=== PATIENT | female | born 1960 | race Caucasian/White ===

== ENCOUNTER 2020-04-13 22:04 | Emergency (ER) | payer MEDICAID, SELFPAY ==
[2020-04-13] VITALS (11 sets, daily range): BP systolic 119–136; BP diastolic 66–99; PULSE 97–115; RESP 13–21; TEMP 37; O2SAT 95–100
--- NOTE | 2020-04-13 22:00 | RT.EKG_ITS ---
APPROVED REPORT Exam: Resting ECG Patient Location: E HR:113 bpm ECG Measurements Heart Rate 113 AXIS OR 175 P 49 QRSd 77 QRS 27 QT 328 T 62 QTc 446 Conclusion Sinus tachycardia...rate> 99 Atrial premature complex...SV complex w/ short R-R interval Normal [place] Normal Intervals. Nonspecific ST changes. No STEMI.
--- NOTE | 2020-04-13 22:06 | ED.GENADUL_ITS ---
Discharge Plan Disposition Patient Disposition: HOME Condition: Good Discharge Details Clinical Impression: Left-sided chest wall pain, Abnormal CT scan of lung Primary Care Provider: None,None ED Provider: Patric Dutta Meds and New Rx's Prescriptions: New ibuprofen 600 mg tablet 600 mg PO Q8H PRNQty: 15 RF: 0 Continued omeprazole 20 mg Capsule,Delayed Release(Dr/Ec) 20 mg PO PRN PRNRF: 0 diphenhydramine HCl [Benadryl] 25 mg Capsule 50 mg PO HS RF: 0 Discharge Instructions Instructions: Chest Wall Pain (ED) Additional Instructions: Your work-up tonight is reassuring with no significant laboratory abnormalities, EKG changes, evidence of blood clot. CT scan does show interstitial changes of the lungs especially in the bases. Given lack of fever, cough, shortness of breath, elevated white count this is unlikely to be pneumonia. Covid testing was negative. Chest pain is likely chest wall pain/costochondritis. Recommend rest over the weekend with heat and ibuprofen. You will need to find primary care for follow-up especially for follow-up of CT scan findings tonight. Records from this visit can be forwarded to that PCP once you establish care. If there are any issues and you develop new or worsening pain, fever, shortness of breath, have other concerns return to ED. Medical Decision Making Patient presenting with pleuritic and reproducible chest pain left sternal border. She denies feeling short of breath but repeatedly takes her mask off to take a deep breath. Unclear whether she is anxious or not. She is tachycardic. Her O2 saturations are normal. She has no risk factors for clot or coronary disease. EKG is sinus tachycardia with nonspecific ST changes nondiagnostic. There is no STEMI. Because of tachycardia of 120 I will proceed with CTA chest to rule out PE. She has had pain all day so one troponin should rule out cardiac problem. History not consistent with dissection. Most likely chest wall pain and anxiety. Will treat with IV ketorolac, IV lorazepam, IV fluids. CTA and labs pending. 01:30 - Patient's labs are unremarkable. Troponin negative. CTA of the chest negative for PE or dissection. She is noted to have interstitial changes that appear chronic as well as groundglass opacities in the lower lung nolasco. Patient has no fever, URI symptoms, cough, shortness of breath. No previous x- rays or CT scans for comparison. Doubt this is infectious but rapid Covid was done. This is negative. Given lack of other symptoms and suggestion of chronic changes will not start antibiotics. Chest pain is likely chest wall pain/costochondritis given its location. We will have her use ibuprofen and heat over the weekend. Currently does not have primary care but would like to find one down in the [place] area where she works. I have instructed her that she will need follow-up regarding CT findings. She will be able to get the records and images sent to new PCP once she finds one. Return to ED for new or worsening pain, shortness of breath, fever, other concerns. Imaging Data Radiologic Study: Imaging: CT Scan Radiologist's impression: FINDINGS: Pulmonary arteries: No pulmonary emboli. Aorta: No aortic aneurysm. No aortic dissection. Lungs: Bilateral interstitial pattern of chronic changes with interlobular septal thickening. Ill-defined opacities within lower lung zones bilaterally, more prominent within left lower lobe, cannot rule out airspace disease. Pleural spaces: Trace pleural effusion on the left. Heart: No cardiomegaly. No pericardial effusion. Lymph nodes: Unremarkable. No enlarged lymph nodes. Bones/joints: Unremarkable. No acute fracture. Soft tissues: Unremarkable. IMPRESSION: No pulmonary emboli. Bilateral ground-glass opacities within lower lung zones, more prominent within left lower lobe, cannot rule out developing airspace disease. Dictated and Authenticated by: Wes Ahumada MD. Lab Data Lab results reviewed: Yes I reviewed the patient's lab results. ECG Data Attestation: I personally reviewed and interpreted this ECG (s) as follows: Prior ECG tracings: not available for review Interpretation: see EKG HPI General Mode of arrival: ambulatory . Date/Time Provider Initiated Documentation: 04/13/20 22:06 . Limitations to Documentation: no limitations . Information obtained by: patient and RN notes reviewed . HPI Narrative: Patient presents to ED with chest pain. Patient reports shoveling part of a roof off on Thursday. Thursday night she has difficulty sleeping because of chest pain seem to Thursday. Thursday day and Thursday she seemed to be okay. Woke up Thursday morning (today) with chest pain that has been present all day long. She did take Tylenol with no relief. It is left anterior pain that is worse with breathing but not moving. She does not feel short of breath. She has no fever or cough. No radiation of pain. No GI symptoms. No leg pain or leg swelling. No prior history of DVT or PE. No cardiac risk factors or history of coronary disease. Prior history of cancer but considered cured status post surgery and chemo in the past. She has been unable to sleep tonight and present for evaluation. Related Data Home Medications Medication Instructions Recorded Confirmed diphenhydramine HCl [Benadryl] 50 mg PO HS 04/13/20 04/13/20 omeprazole 20 mg PO PRN PRN 04/13/20 04/13/20 ibuprofen 600 mg PO Q8H PRN #15 tab 04/14/20 Previous Rx's Medication Instructions Recorded ibuprofen 600 mg PO Q8H PRN #15 tab 04/14/20 Allergies Allergy/AdvReac Type Severity Reaction Status Date / Time No Known Drug Allergies Allergy Unverified 04/13/20 22:27 Review of Systems Narrative: As documented in HPI otherwise negative as below. Const: no fever, chills, weakness Resp: no cough, SOB CV: no diaphoresis, edema, syncope GI: no abdominal pain, nausea, vomiting, diarrhea Neuro: no headache, numbness, focal weakness, confusion PFSH Medical History Colon cancer s/p chemo and surgery considered cured Surgical History S/P partial resection of colon Social History Smoking/Tobacco Use Status: Former Tobacco Use Smoking risk assessment performed?: Yes Alcohol Intake: current Alcohol Intake frequency: a few times a week Drug use: Never Substance use type: does not use Do you feel safe at home: Yes Do you feel safe in your relationship?: Yes Exam Narrative Exam Narrative: Const: WDWN female in NAD. HEENT: NC/AT. Normal facial exam. Eyes: Normal conjunctiva and sclera. Neck: Supple. Trachea midline. Lungs: Normal respiratory effort. Lungs are clear. Chest wall tender to palpation left sternal border. Cor: RRR without murmur/gallop. Good radial pulses. GI: Soft. NT/ND. No guarding or rebound. Neuro: A+O x 3. Normal speech, mentation, gait. Cranial nerves II - XII grossly intact. No gross motor or sensory deficit. Ext: No C/C/E. No calf tenderness. Skin: Warm and dry without rash.
[2020-04-13] MEDS: Lactated Ringers 1,000 ML 1000 ML IV (22:55)
[2020-04-13] MEDS: Ketorolac 15 MG/ML VIAL IVP (22:59)
[2020-04-13 23:00] LABS: Abs Immature Grans 0.01 10^3/uL (0.0-0.06); Absolute Basophil Count 0.03 10^3/uL (0.0-0.2); Absolute Eosinophil Count 0.22 10^3/uL (0.0-0.7); Absolute Lymphocyte Count 0.94 10^3/uL (1.2-3.4); Absolute Monocyte Count 0.55 10^3/uL (0.1-0.8); Absolute Neutrophil Count 2.49 10^3/uL (1.2-6.7); Basophils % 0.7; Eosinophils % 5.2; HGB 12.4 g/dL (11.2-15.7); Immature Grans % 0.2; Lymphocytes % 22.2; MCHC 33.5 % (32.0-36.0); MCV 86.7 fL (80-95); Neutrophils % 58.7; Nucleated RBC 0 %; Platelet Count 194 10^3/uL (130-400); RBC 4.27 10^6/uL (3.93-5.22); RDW 13.7 % (11.7-14.6); RDW-SD 42.1 fL; WBC 4.24 10^3/uL (4.4-10.8)
[2020-04-13] MEDS: LORazepam 2 MG/ML VIAL 0.5 MG IVP (23:02)
[2020-04-13 23:16] LABS: ALT 27 U/L (14-59); AST 20 U/L (15-37); Albumin 3.5 g/dL (3.4-5.0); Alkaline Phosphatase 134 U/L (46-116); Anion Gap 12.3 mmol/L (3-11); BUN 14 mg/dL (7-18); Bilirubin, Total 0.3 mg/dL (0.2-1.0); CO2 24.7 mmol/L (21.0-32.0); CREATININE 0.9 mg/dL (0.55-1.02); Calcium 8.7 mg/dL (8.5-10.1); Chloride 103 mmol/L (98-107); Glucose 110 mg/dL (74-106); Magnesium 2.1 mg/dL (1.8-2.4); Potassium 3.7 mmol/L (3.5-5.1); Sodium 140 mmol/L (136-145); Total Protein 7.4 g/dL (6.4-8.2)
[2020-04-13 23:17] LABS: Troponin I < 0.05 ng/mL (<0.06)
--- NOTE | 2020-04-13 23:36 | DI.CT_ITS ---
EXAM: CT CHEST PE CTA CLINICAL HISTORY: pleutic CP with tachycardia. TECHNIQUE: Imaging Protocol: CT angiography of the chest was performed using pulmonary embolus nancy col. Multi planar reconstructions were performed. CONTRAST MATERIAL: Intravenous: Omnipaque 350 Contrast volume: 70 cc COMPARISON: No exams were available for comparison FINDINGS: CHEST: PULMONARY ARTERIES: There are no intraluminal filling defects to suggest acute pulmonary emboli. LUNGS: Mild increased markings in lung bases noted. Probably exaggerated by suboptimal inspiratory e ffort.. There are no pleural effusions. MEDIASTINUM: There is no hilar nor mediastinal adenopathy. Visualized thyroid unremarkable. CARDIAC: Heart size is normal. There is no pericardial effusion.Caliber thoracic aorta is within nor mal limits. There is no evidence of aortic dissection. There is no evidence of shift of the interve ntricular septum. PARTIALLY VISUALIZED UPPERMOST ABDOMEN: Hepatic steatosis noted. OSSEOUS: No significant osseous lesions.. IMPRESSION: 1. No evidence of acute pulmonary emboli. No evidence of pulmonary infarction.No pleural effusions. No evidence of aortic dissection. No pericardial effusion. 2. Mild infiltrates in both lower lung zones, slightly more prominent on the left side. 3. No intrathoracic adenopathy evident. RADIATION DOSE DELIVERED: LINK-TO-SR Total DLP DATA REPOSITORY: All CT scans at this facility are submitted to the National Radiology Data Registry (NRDR) Dose Index Registry (DIR) with the [employer] ([employer]). RADIATION OPTIMIZATION: All CT scans at this facility use at least one of these dose optimization te chniques: automated exposure control; mA and/or kV adjustment per patient size (includes targeted exa ms where dose is matched to clinical indication); or iterative reconstruction.
[2020-04-13] MEDS: Normal Saline - Diluent 50 ML VIAL IV (23:56)
[2020-04-13] MEDS: Normal Saline Flush 10 ML SYR IVP (23:56)
[2020-04-13] MEDS: Omnipaque 350 MG/ML 100 ML BTL IJ (23:57)
[2020-04-14] VITALS (15 sets, daily range): BP systolic 101–104; BP diastolic 62–70; PULSE 88–107; RESP 14–23; O2SAT 94–98
--- NOTE | 2020-04-14 00:06 | DI.VRAD_ITS ---
PROCEDURE INFORMATION: Exam: CT Angiography Chest With Contrast Exam date and time: 04/13/2020 10:29 PM Age: 59 years old Clinical indication: Patient HX: Pleuritic chest pain with tachycardia. Pain started 4 days ago +/- TECHNIQUE: Imaging protocol: Computed tomographic angiography of the chest with contrast. 3D rendering (Not supervised by radiologist): MIP and/or 3D reconstructed images were created by the technologist. Radiation optimization: All CT scans at this facility use at least one of these dose optimization techniques: automated exposure control; mA and/or kV adjustment per patient size (includes targeted exams where dose is matched to clinical indication); or iterative reconstruction. Contrast material: [id number]; Contrast volume: 70 ml; Contrast route: INTRAVENOUS (IV); COMPARISON: No relevant prior studies available. FINDINGS: Pulmonary arteries: No pulmonary emboli. Aorta: No aortic aneurysm. No aortic dissection. Lungs: Bilateral interstitial pattern of chronic changes with interlobular septal thickening. Ill-defined opacities within lower lung zones bilaterally, more prominent within left lower lobe, cannot rule out airspace disease. Pleural spaces: Trace pleural effusion on the left. Heart: No cardiomegaly. No pericardial effusion. Lymph nodes: Unremarkable. No enlarged lymph nodes. Bones/joints: Unremarkable. No acute fracture. Soft tissues: Unremarkable. IMPRESSION: No pulmonary emboli. Bilateral ground-glass opacities within lower lung zones, more prominent within left lower lobe, cannot rule out developing airspace disease. Dictated and Authenticated by: Wes Ahumada MD. Ordering:HERRERA Spivey MD
[2020-04-14 00:24] LABS: Source Nasopharynx
[2020-04-14 01:01] LABS: COVID-19 PCR Negative (Negative); Influenza A PCR Negative (Negative); Influenza B PCR Negative (Negative); RSV PCR Negative (Negative)
== END 2020-04-14 01:50 | disposition home or self-care (01) ==
PROVIDERS: Emergency Provider Emergency Medicine
DX: R07.89 Other chest pain (principal); R91.8 Other nonspecific abnormal finding of lung field; R00.0 Tachycardia, unspecified; Z20.822 Contact with and (suspected) exposure to COVID-19
CPT/HCPCS: 71275; 80053; 87637; 93005; 96361; 96374; 96375; 99285; 83735; 84484; 85025; 93010; 99284; J1885; J2060; J3490

== ENCOUNTER 2024-03-21 02:55 | Outpatient (CLI) | payer BC, SELFPAY ==
[2024-03-21 10:59] LABS: Abs Immature Grans 0.01 10^3/uL (0.0-0.06); Absolute Basophil Count 0.04 10^3/uL (0.0-0.2); Absolute Eosinophil Count 0.26 10^3/uL (0.0-0.7); Absolute Lymphocyte Count 1.16 10^3/uL (1.2-3.4); Absolute Monocyte Count 0.43 10^3/uL (0.1-0.8); Absolute Neutrophil Count 2.25 10^3/uL (1.2-6.7); Eosinophils % 6.3 %; HCT 38.7 % (36.0-46.0); HGB 12.8 g/dL (11.2-15.7); Immature Grans % 0.2 %; MCH 28.7 pg (27.0-33.0); MCHC 33.1 % (32.0-36.0); MCV 87 fL (80-95); MPV 9.7 fL (8.0-11.0); Monocytes % 10.4 %; Neutrophils % 54.1 %; Platelet Count 203 10^3/uL (130-400); RBC 4.46 10^6/uL (3.93-5.22); RDW 12.4 % (11.7-14.6); RDW-SD 38.9 fL; WBC 4.15 10^3/uL (4.4-10.8)
[2024-03-21 11:19] LABS: ALT 32 U/L (14-59); AST 20 U/L (15-37); Albumin 3.6 g/dL (3.4-5.0); Alkaline Phosphatase 129 U/L (46-116); Anion Gap 8.2 mmol/L (3-11); BUN 16 mg/dL (7-18); Bilirubin, Total 0.34 mg/dL (0.2-1.0); CO2 27.8 mmol/L (21.0-32.0); Calcium 8.8 mg/dL (8.5-10.1); Chloride 106 mmol/L (98-107); Glucose 104 mg/dL (74-106); Potassium 4.1 mmol/L (3.5-5.1); Sodium 142 mmol/L (136-145); Total Protein 7.3 g/dL (6.4-8.2)
[2024-03-21 17:57] LABS: CEA 1.3 ng/mL (See Note)
== END 2024-03-21 02:56 | disposition home or self-care (01) ==
LOC: LBO 02:56
PROVIDERS: Visit Provider Internal Medicine Hematology & Oncology
DX: C20 Malignant neoplasm of rectum (principal); C78.7 Secondary malignant neoplasm of liver and intrahepatic bile duct
CPT/HCPCS: 36415; 80053; 82378; 85025

== ENCOUNTER 2024-09-12 01:35 | Outpatient (CLI) | payer BC, SELFPAY ==
[2024-09-12 11:27] LABS: Abs Immature Grans 0.01 10^3/uL (0.0-0.06); HCT 39.9 % (36.0-46.0); HGB 13.2 g/dL (11.2-15.7); Immature Grans % 0.3 %; MCH 28.4 pg (27.0-33.0); MCHC 33.1 % (32.0-36.0); MCV 86 fL (80-95); MPV 9.9 fL (8.0-11.0); Platelet Count 203 10^3/uL (130-400); RBC 4.65 10^6/uL (3.93-5.22); RDW 13.1 % (11.7-14.6); RDW-SD 40.1 fL; WBC 3.75 10^3/uL (4.4-10.8)
[2024-09-12 11:45] LABS: ALT 36 U/L (14-59); AST 25 U/L (15-37); Albumin 3.8 g/dL (3.4-5.0); Alkaline Phosphatase 132 U/L (46-116); Anion Gap 7.9 mmol/L (3-11); BUN 19 mg/dL (7-18); Bilirubin, Total 0.4 mg/dL (0.2-1.0); CO2 28.1 mmol/L (21.0-32.0); Calcium 9.1 mg/dL (8.5-10.1); Chloride 104 mmol/L (98-107); Estimated GFR 71.83 (mL/min/1.73m2); Glucose 108 mg/dL (74-106); Potassium 4.0 mmol/L (3.5-5.1); Sodium 140 mmol/L (136-145); Total Protein 7.6 g/dL (6.4-8.2)
[2024-09-12 18:12] LABS: CEA 1.2 ng/mL (See Note)
== END 2024-09-12 01:36 | disposition home or self-care (01) ==
LOC: LBO 01:35
PROVIDERS: Visit Provider Nurse Practitioner Family
DX: C20 Malignant neoplasm of rectum (principal); C78.7 Secondary malignant neoplasm of liver and intrahepatic bile duct
CPT/HCPCS: 36415; 80053; 82378; 85025